=== PATIENT | male | born 1995 | race Caucasian/White ===

== ENCOUNTER 2019-03-24 16:43 | Outpatient (REF) | payer BC, SELFPAY ==
[2019-03-24 19:16] LABS: HCT 44.9 % (40.0-50.0); HGB 14.4 g/dL (13.5-17.5); Mean Corp. HGB Concentration 32.1 g/dL (32.0-36.0); Mean Corpuscular Volume 84.1 fL (80-95); Mean Platelet Volume 10.6 fL (8.0-11.0); Platelet Count 380 x1000/uL (130-400); RBC 5.34 m/cumm (4.50-6.00); RBC Distribution Width 13.6 % (11.8-14.1); White Blood Cell Count 9.26 k/cumm (4.4-10.8)
[2019-03-24 19:42] LABS: ALT 65 U/L (16-63); BUN 11 mg/dL (7-18); CREATININE 0.93 mg/dL (0.70-1.30); Calcium 8.6 mg/dL (8.5-10.1); Calculated LDL 96 mg/dL; Chloride 106 mmol/L (98-107); Cholesterol 148 mg/dL (50-200); Glucose 95 mg/dL (70-100); HDL Cholesterol 30 mg/dL (40-60); Potassium 4.3 mmol/L (3.5-5.1); Sodium 143 mmol/L (136-145); TSH 7.72 uIU/mL (0.36-3.74); Triglyceride 112 mg/dL (30-150)
== END 2019-03-24 17:03 ==
LOC: NCHCN 16:43
PROVIDERS: PCP Physician Assistant Medical; Visit Provider Internal Medicine
DX: I10 Essential (primary) hypertension (principal); K76.0 Fatty (change of) liver, not elsewhere classified; R53.83 Other fatigue; G47.33 Obstructive sleep apnea (adult) (pediatric)
CPT/HCPCS: 80048; 80061; 85027; 84443; 84460

== ENCOUNTER 2019-08-25 22:32 | Outpatient (REF) | payer OTHER, SELFPAY ==
[2019-08-25 19:39] LABS: TSH (W/Ref FT4) 5.39 uIU/mL (0.36-3.74)
[2019-08-25 19:58] LABS: FREE T4 0.97 ng/dL (0.76-1.46)
== END 2019-08-25 22:52 ==
LOC: NCHCN 22:32
PROVIDERS: PCP Physician Assistant Medical; Visit Provider Physician Assistant
DX: E03.9 Hypothyroidism, unspecified (principal)
CPT/HCPCS: 84439; 84443

== ENCOUNTER 2019-10-14 12:08 | Outpatient (REF) | payer OTHER, SELFPAY ==
[2019-10-14 19:17] LABS: TSH (W/Ref FT4) 2.64 uIU/mL (0.36-3.74)
== END 2019-10-14 12:28 ==
LOC: NCHCN 12:08
PROVIDERS: PCP Physician Assistant Medical; Visit Provider Physician Assistant
DX: E03.9 Hypothyroidism, unspecified (principal)
CPT/HCPCS: 84443

== ENCOUNTER 2020-01-20 11:28 | Outpatient (REF) | payer OTHER, SELFPAY ==
[2020-01-20 19:55] LABS: TSH 3.09 uIU/mL (0.36-3.74)
[2020-01-20 20:26] LABS: FREE T4 1.01 ng/dL (0.76-1.46)
== END 2020-01-20 11:48 ==
LOC: NCHCN 11:28
PROVIDERS: PCP Physician Assistant; Visit Provider Physician Assistant
DX: E03.9 Hypothyroidism, unspecified (principal); R53.83 Other fatigue
CPT/HCPCS: 84439; 84443

== ENCOUNTER 2020-04-04 08:40 | Outpatient (REF) | payer OTHER, SELFPAY ==
[2020-04-04 22:53] LABS: TSH (W/Ref FT4) 5.06 uIU/mL (0.36-3.74)
[2020-04-04 23:10] LABS: FREE T4 1.15 ng/dL (0.76-1.46)
== END 2020-04-04 09:00 ==
LOC: NCHCN 08:40
PROVIDERS: PCP Physician Assistant; Visit Provider Physician Assistant
DX: E03.9 Hypothyroidism, unspecified (principal)
CPT/HCPCS: 80053; 80061; 84439; 84443

== ENCOUNTER 2020-06-04 17:35 | Outpatient (REF) | payer OTHER, SELFPAY ==
[2020-06-04 19:38] LABS: TSH (W/Ref FT4) 4.96 uIU/mL (0.36-3.74)
[2020-06-04 20:01] LABS: FREE T4 1.14 ng/dL (0.76-1.46)
== END 2020-06-04 17:55 ==
LOC: NCHCN 17:35
PROVIDERS: PCP Physician Assistant; Visit Provider Physician Assistant
DX: E03.9 Hypothyroidism, unspecified (principal)
CPT/HCPCS: 84439; 84443

== ENCOUNTER 2020-07-16 16:35 | Outpatient (REF) | payer OTHER, SELFPAY ==
[2020-07-19 00:41] LABS: COVID-19 RT-PCR Result NEGATIVE (Negative)
== END 2020-07-16 16:55 ==
LOC: NCHCN 16:35
PROVIDERS: PCP Physician Assistant; Visit Provider Physician Assistant
DX: Z20.828 Contact with and (suspected) exposure to other viral communicable diseases (principal)
CPT/HCPCS: U0003

== ENCOUNTER 2020-08-14 20:15 | Outpatient (REF) | payer OTHER, SELFPAY ==
[2020-08-14 21:27] LABS: TSH 2.25 uIU/mL (0.36-3.74)
[2020-08-14 21:44] LABS: FREE T4 1.41 ng/dL (0.76-1.46)
== END 2020-08-14 20:35 ==
LOC: NCHCN 20:15
PROVIDERS: PCP Physician Assistant; Visit Provider Physician Assistant
DX: E03.9 Hypothyroidism, unspecified (principal); K21.9 Gastro-esophageal reflux disease without esophagitis; F41.8 Other specified anxiety disorders; G47.33 Obstructive sleep apnea (adult) (pediatric); E66.01 Morbid (severe) obesity due to excess calories
CPT/HCPCS: 84439; 84443

== ENCOUNTER 2021-11-07 17:54 | Outpatient (REF) | payer BC, SELFPAY ==
[2021-11-07 21:46] LABS: TSH (W/Ref FT4) 2.91 uIU/mL (0.36-3.74)
== END 2021-11-07 17:55 | disposition home or self-care (01) ==
LOC: NCHCN 17:54
PROVIDERS: PCP Physician Assistant; Visit Provider Physician Assistant
DX: E03.9 Hypothyroidism, unspecified (principal)
CPT/HCPCS: 84443

== ENCOUNTER 2022-05-06 14:09 | Outpatient (REF) | payer BC, SELFPAY ==
[2022-05-06 19:09] LABS: ALT 53 U/L (16-63); AST 24 U/L (15-37); Alkaline Phosphatase 53 U/L (46-116); Anion Gap 7.4 mmol/L (3-11); BUN 20 mg/dL (7-18); Bilirubin, Total 0.4 mg/dL (0.2-1.0); CO2 27.6 mmol/L (21.0-32.0); CREATININE 0.9 mg/dL (0.70-1.30); Calcium 9.1 mg/dL (8.5-10.1); Chloride 104 mmol/L (98-107); Estimated GFR 120.05 (mL/min/1.73m2); Glucose 89 mg/dL (74-106); Potassium 4.2 mmol/L (3.5-5.1); Sodium 139 mmol/L (136-145); TSH (W/Ref FT4) 3.35 uIU/mL (0.36-3.74); Total Protein 7.5 g/dL (6.4-8.2)
== END 2022-05-06 14:10 | disposition home or self-care (01) ==
LOC: NCHCN 14:09
PROVIDERS: PCP Physician Assistant; Visit Provider Physician Assistant
DX: I10 Essential (primary) hypertension (principal); E03.9 Hypothyroidism, unspecified
CPT/HCPCS: 80053; 84443

== ENCOUNTER 2023-05-20 14:31 | Outpatient (REF) | payer OTHER, SELFPAY ==
[2023-05-20 21:13] LABS: ALT 70 U/L (16-63); AST 33 U/L (15-37); Alkaline Phosphatase 64 U/L (46-116); Anion Gap 9.4 mmol/L (3-11); BUN 14 mg/dL (7-18); Bilirubin, Total 0.6 mg/dL (0.2-1.0); CO2 26.6 mmol/L (21.0-32.0); CREATININE 0.9 mg/dL (0.70-1.30); Calcium 9.4 mg/dL (8.5-10.1); Chloride 106 mmol/L (98-107); Estimated GFR 119.31 (mL/min/1.73m2); Glucose 98 mg/dL (74-106); Potassium 4.1 mmol/L (3.5-5.1); Sodium 142 mmol/L (136-145); Total Protein 7.4 g/dL (6.4-8.2)
[2023-05-20 22:21] LABS: FREE T4 1.05 ng/dL (0.76-1.46)
== END 2023-05-20 14:32 | disposition home or self-care (01) ==
LOC: NCHCN 14:31
PROVIDERS: PCP Physician Assistant; Visit Provider Physician Assistant
DX: E03.9 Hypothyroidism, unspecified (principal); I10 Essential (primary) hypertension; Z00.00 Encounter for general adult medical examination without abnormal findings
CPT/HCPCS: 80053; 84439; 84443

== ENCOUNTER 2023-10-30 18:36 | Outpatient (REF) | payer OTHER, SELFPAY ==
[2023-10-30 19:13] LABS: Abs Immature Grans 0.03 10^3/uL (0.0-0.06); Absolute Basophil Count 0.06 10^3/uL (0.0-0.2); Absolute Lymphocyte Count 2.12 10^3/uL (1.2-3.4); Absolute Neutrophil Count 4.55 10^3/uL (1.2-6.7); Basophils % 0.8; HCT 45.6 % (40.0-50.0); HGB 14.6 g/dL (13.5-17.5); Immature Grans % 0.4; Lymphocytes % 28.4; MCH 27.3 pg (27.0-33.0); MCV 85 fL (80-95); MPV 10.8 fL (8.0-11.0); Monocytes % 5.4; Platelet Count 297 10^3/uL (130-400); RBC 5.35 10^6/uL (4.36-5.78); RDW 13.7 % (11.8-14.1); RDW-SD 42.4 fL; WBC 7.46 10^3/uL (4.4-10.8)
[2023-10-30 19:26] LABS: Hemoglobin A1C 5.8 % (<5.7)
[2023-10-30 19:40] LABS: ALT 51 U/L (16-63); AST 25 U/L (15-37); Albumin 3.3 g/dL (3.4-5.0); Alkaline Phosphatase 55 U/L (46-116); Anion Gap 8.5 mmol/L (3-11); BUN 12 mg/dL (7-18); Bilirubin, Total 0.3 mg/dL (0.2-1.0); CO2 26.5 mmol/L (21.0-32.0); CREATININE 0.9 mg/dL (0.70-1.30); Calcium 8.2 mg/dL (8.5-10.1); Calculated LDL 65 mg/dL (<100); Chloride 109 mmol/L (98-107); Cholesterol 106 mg/dL (<200); Estimated GFR 119.31 (mL/min/1.73m2); Glucose 98 mg/dL (74-106); HDL Cholesterol 26 mg/dL (40-60); Potassium 4.1 mmol/L (3.5-5.1); Sodium 144 mmol/L (136-145); Total Protein 6.7 g/dL (6.4-8.2); Triglyceride 77 mg/dL (<150)
== END 2023-10-30 18:37 | disposition home or self-care (01) ==
LOC: NCHCN 18:36
PROVIDERS: PCP Physician Assistant; Referring Provider Physician Assistant; Visit Provider Physician Assistant
DX: I10 Essential (primary) hypertension (principal); E03.9 Hypothyroidism, unspecified; R73.09 Other abnormal glucose; E66.01 Morbid (severe) obesity due to excess calories
CPT/HCPCS: 80053; 80061; 83036; 84443; 85025

== ENCOUNTER 2024-10-11 16:28 | Outpatient (REF) | payer BC, SELFPAY ==
[2024-10-11 20:58] LABS: ALT 58 U/L (16-63); AST 23 U/L (15-37); Albumin 3.6 g/dL (3.4-5.0); Alkaline Phosphatase 72 U/L (46-116); BUN 13 mg/dL (7-18); Bilirubin, Total 0.2 mg/dL (0.2-1.0); CREATININE 0.9 mg/dL (0.70-1.30); Chloride 108 mmol/L (98-107); Estimated GFR 118.57 (mL/min/1.73m2); Glucose 186 mg/dL (74-106); Potassium 4.3 mmol/L (3.5-5.1); Sodium 143 mmol/L (136-145); TSH (W/Ref FT4) 2.28 uIU/mL (0.36-3.74)
[2024-10-12 18:25] LABS: HIV-1/2 Ag & Ab Screen Negative (Negative)
[2024-10-12 18:30] LABS: Hepatitis C Ab w Rflx HCV PCR Negative (Negative)
== END 2024-10-11 16:29 | disposition home or self-care (01) ==
LOC: NCHCN 16:28
PROVIDERS: PCP Physician Assistant; Visit Provider Physician Assistant
DX: I10 Essential (primary) hypertension (principal); E03.9 Hypothyroidism, unspecified; Z11.4 Encounter for screening for human immunodeficiency virus [HIV]; Z11.59 Encounter for screening for other viral diseases
CPT/HCPCS: 80053; 86803; 87389; 84443

== ENCOUNTER 2025-05-18 11:17 | Outpatient (REF) | payer BC, SELFPAY ==
[2025-05-18 18:40] LABS: Abs Immature Grans 0.03 10^3/uL (0.0-0.06); HCT 45.0 % (40.0-50.0); HGB 14.6 g/dL (13.5-17.5); Immature Grans % 0.3 %; MCH 28.5 pg (27.0-33.0); MCHC 32.4 % (32.0-36.0); MCV 88 fL (80-95); MPV 10.1 fL (8.0-11.0); Platelet Count 338 10^3/uL (130-400); RBC 5.13 10^6/uL (4.36-5.78); RDW 13.0 % (11.8-14.1); RDW-SD 41.8 fL; WBC 9.12 10^3/uL (4.4-10.8)
[2025-05-18 18:56] LABS: ALT 51 U/L (16-63); AST 23 U/L (15-37); Albumin 3.4 g/dL (3.4-5.0); Alkaline Phosphatase 59 U/L (46-116); Anion Gap 5.3 mmol/L (3-11); BUN 12 mg/dL (7-18); Bilirubin, Total 0.7 mg/dL (0.2-1.0); CO2 29.7 mmol/L (21.0-32.0); Calcium 8.8 mg/dL (8.5-10.1); Calculated LDL 104 mg/dL (<100); Chloride 105 mmol/L (98-107); Cholesterol 148 mg/dL (<200); Estimated GFR 117.83 (mL/min/1.73m2); Glucose 92 mg/dL (74-106); HDL Cholesterol 30 mg/dL (>or=40); Potassium 4.5 mmol/L (3.5-5.1); Sodium 140 mmol/L (136-145); TSH (W/Ref FT4) 3.00 uIU/mL (0.36-3.74); Total Protein 6.8 g/dL (6.4-8.2); Triglyceride 72 mg/dL (<150)
== END 2025-05-18 11:18 | disposition home or self-care (01) ==
LOC: NCHCN 11:17
PROVIDERS: PCP Physician Assistant; Visit Provider Physician Assistant
DX: I10 Essential (primary) hypertension (principal); K76.0 Fatty (change of) liver, not elsewhere classified; E03.9 Hypothyroidism, unspecified
CPT/HCPCS: 80053; 80061; 84443; 85025